=== PATIENT | male | born 1980 | race Asian ===

== ENCOUNTER 2023-12-07 00:01 | Emergency (ER) | payer OTHER ==
[~2023-12-07] VITALS: Ht 170.2 cm; Wt 74.8 kg
[2023-12-07] MEDS: CYCLOBENZAPRINE 10 MG TABLET PO ONE (00:29)
[2023-12-07] MEDS: ACETAMINOPHEN ES 500 MG TABLET PO ONE (00:29)
[2023-12-07 00:30] VITALS: BP 129/73; TEMP 98; O2SAT 98
== END 2023-12-07 00:32 | disposition left against medical advice (07) ==
LOC: ER 00:03
DX: R51.9 Headache, unspecified (principal); M54.2 Cervicalgia; M79.642 Pain in left hand; R07.89 Other chest pain; V43.52XA Car driver injured in collision with other type car in traffic accident, initial encounter; Y93.89 Activity, other specified; Y92.488 Other paved roadways as the place of occurrence of the external cause; Y99.8 Other external cause status
CPT/HCPCS: 71045-TC